=== PATIENT | female | born 1965 | race Caucasian/White ===

== ENCOUNTER 2017-02-25 10:59 | Inpatient (IN) | payer MEDICAID ==
[~2017-02-25] VITALS: Ht 160 cm; Wt 94.0 kg
[2017-02-25] MEDS ORDERED: MORPHINE SULFATE 4 MG/ML, 1ML ONE (11:47)
[2017-02-25] MEDS ORDERED: ACETAMINOPHEN 325 MG TABLET ONE (11:47)
[2017-02-25] MEDS ORDERED: KETOROLAC 30 MG/1 ML ONE (11:47)
[2017-02-25] MEDS ORDERED: PIPERACILLIN/TAZO/PMX 3.375GM 50 ML ONE (11:48)
[2017-02-25] MEDS ORDERED: ONDANSETRON 2MG/ML, 2ML ONE (11:48)
[2017-02-25] MEDS ORDERED: SODIUM CHLORIDE 0.9% 1,000ML IVBOLUS ONE ×2 (12:00→13:30)
[2017-02-25] MEDS ORDERED: PIPERACILLIN/TAZO/PMX 3.375GM 50 ML IVPB ONE (12:00)
[2017-02-25] MEDS ORDERED: KETOROLAC 30 MG/1 ML IVPush ONE (12:00)
[2017-02-25] MEDS ORDERED: morphine SULFATE 10 MG/ML, 1ML IVPush ONE (12:00)
[2017-02-25] MEDS ORDERED: VANCOMYCIN PER PHARMACY MC ONE (12:00)
[2017-02-25] MEDS ORDERED: VANCOMYCIN 1,800 MG in SODIUM CHLORIDE 0.9% 250 ML IV ONE (12:00)
[2017-02-25] MEDS ORDERED: ACETAMINOPHEN 325 MG TABLET PO ONE (12:00)
[2017-02-25] MEDS ORDERED: SODIUM CHLORIDE FLUSH 10ML SYR IVF ONE (12:00)
[2017-02-25 12:01] LABS: HEMOGLOBIN 16.2 g/dL (11.7-16.4)
[2017-02-25 12:15] LABS: BLOOD UREA NITROGEN 16 mg/dL (7-18)
[2017-02-25 12:18] LABS: ASPARTATE AMINO TRANSFERASE 15 U/L (15-37); DIFF TOTAL CELLS COUNTED 100 CELL DIFF
[2017-02-25 12:19] LABS: VERIFY COUNTS? YES
[2017-02-25] MEDS: D5%-0.45% NACL 1,000 ML IV SCH ×2 (14:41→23:09)
[2017-02-25] MEDS ORDERED: VANCOMYCIN PER PHARMACY MC PRN (15:00)
[2017-02-25] MEDS ORDERED: GUAIFENESIN/DM 200-20MG, 10ML UDC PO PRN (15:00)
[2017-02-25] MEDS ORDERED: ONDANSETRON ODT 4 MG PO PRN (15:00)
[2017-02-25] MEDS ORDERED: LABETALOL 5MG/ML, 20ML IV PRN (15:00)
[2017-02-25] MEDS ORDERED: POLYETHYLENE GLYCOL 17 GM PACKET PO PRN (15:00)
[2017-02-25] MEDS ORDERED: MORPHINE SULFATE 4 MG/ML, 1ML IVPush PRN (15:00)
[2017-02-25] MEDS ORDERED: ONDANSETRON 2MG/ML, 2ML IVP PRN (15:00)
[2017-02-25 15:48] VITALS: BP 106/68
[2017-02-25] MEDS ORDERED: VANCOMYCIN 1,800 MG in SODIUM CHLORIDE 0.9% 250 ML IV SCH (16:00)
[2017-02-25] MEDS ORDERED: PHARMACOKINETIC MONITORING MC PRN (16:00)
[2017-02-25] MEDS: CLINDAMYCIN PMX 600MG/50ML 50 ML IV SCH (16:08)
[2017-02-25] MEDS: AMPICILLIN/SULBACTAM 3 GM in SODIUM CHLORIDE 0.9% 100 ML IV SCH ×2 (17:21→20:48)
[2017-02-25] MEDS ORDERED: ENOXAPARIN 40 MG/0.4 ML SQ SCH (17:30)
[2017-02-25 19:03] VITALS: BP 96/61
[2017-02-25 20:35] VITALS: BP 110/72
[2017-02-25] MEDS: HYDROcodone/APAP 5/325 TABLET PO PRN (20:47)
[2017-02-25] MEDS: FAMOTIDINE 20 MG/2 ML IV SCH (20:48)
[2017-02-26] MEDS: CLINDAMYCIN PMX 600MG/50ML 50 ML IV SCH ×3 (00:05→16:45)
[2017-02-26 00:55] VITALS: BP 104/68
[2017-02-26] MEDS: AMPICILLIN/SULBACTAM 3 GM in SODIUM CHLORIDE 0.9% 100 ML IV SCH ×3 (02:39→15:00)
[2017-02-26] MEDS: HYDROcodone/APAP 5/325 TABLET PO PRN ×3 (05:37→15:37)
[2017-02-26] MEDS: D5%-0.45% NACL 1,000 ML IV SCH (05:37)
[2017-02-26 05:56] LABS: HEMOGLOBIN 13.2 g/dL (11.7-16.4)
[2017-02-26 06:01] LABS: BLOOD UREA NITROGEN 14 mg/dL (7-18)
[2017-02-26 06:02] LABS: ASPARTATE AMINO TRANSFERASE 22 U/L (15-37)
[2017-02-26 07:40] VITALS: BP 109/71
[2017-02-26] MEDS ORDERED: SENNA/DOCUSATE TABLET PO SCH (09:00)
[2017-02-26] MEDS: FAMOTIDINE 20 MG/2 ML IV SCH (09:18)
[2017-02-26 13:41] VITALS: BP 112/80
[2017-02-26] MEDS ORDERED: SODIUM CHLORIDE 0.9% 1,000 ML IV SCH (15:30)
[2017-02-26] MEDS ORDERED: VANCOMYCIN 1,800 MG in SODIUM CHLORIDE 0.9% 250 ML IV SCH (17:00)
[2017-02-26] MEDS ORDERED: FAMOTIDINE 20 MG TABLET PO SCH (21:00)
[2017-02-27] MEDS ORDERED: VANCOMYCIN 1,800 MG in SODIUM CHLORIDE 0.9% 250 ML IV SCH
== END 2017-02-26 18:15 | disposition left against medical advice (07) | DRG 871 ==
LOC: ED 13:08 → EDIP 14:06 → 4WST 15:22
PROVIDERS: ADMIT Hospitalist; ATTEND Hospitalist
PROC: 0T9B70Z Drainage of Bladder with Drainage Device, Via Natural or Artificial Opening (ICD-10-PCS; principal; 2017-02-25)
DX: A41.9 Sepsis, unspecified organism (principal); N17.0 Acute kidney failure with tubular necrosis; L03.116 Cellulitis of left lower limb; E87.1 Hypo-osmolality and hyponatremia; E44.1 Mild protein-calorie malnutrition; K21.9 Gastro-esophageal reflux disease without esophagitis; R65.20 Severe sepsis without septic shock; E66.01 Morbid (severe) obesity due to excess calories; Z53.21 Procedure and treatment not carried out due to patient leaving prior to being seen by health care provider; F17.210 Nicotine dependence, cigarettes, uncomplicated; Z80.7 Family history of other malignant neoplasms of lymphoid, hematopoietic and related tissues; Z68.36 Body mass index [BMI] 36.0-36.9, adult; Z98.890 Other specified postprocedural states
CPT/HCPCS: 36415; 71010; 80053; 81003; 82962; 83605; 83735; 84145; 84439; 84443; 85025; 85610; 85730; 87040; 96365; 96366; 96367; 96375; J0295; J1650; J1885; J2543; J3370; J2270; J7030; J7050; S0028

== ENCOUNTER 2018-12-25 08:43 | Inpatient (IN) | payer MEDICAID, OTHER ==
[~2018-12-25] VITALS: Ht 160 cm; Wt 93.2 kg
[2018-12-25] MEDS ORDERED: SODIUM CHLORIDE FLUSH 10ML SYR IVF ONE (09:00)
[2018-12-25] MEDS ORDERED: VANCOMYCIN 1,800 MG in SODIUM CHLORIDE 0.9% 250 ML IV ONE (09:00)
[2018-12-25] MEDS ORDERED: VANCOMYCIN PER PHARMACY MC ONE (09:00)
--- NOTE | 2018-12-25 09:02 | NUR ---
ASSUMED CARE OF PATIENT. PATIENT THONY SO FROM THE HALF-WAY. PT REPORTS RED, SWOLLEN, PAINFUL LEFT LOWER LEG. PT HAS BEEN SEEN BY ROBERTO FREEMAN. PT WAS FEBRILE FOR EMS. 500 MG OF TYLENOL WAS GIVEN. CALL LIGHT IN PLACE. WILL CONTINUE TO MONITOR.
[2018-12-25 09:26] LABS: MEAN CORPUSCULAR HEMOGLOBIN 29.4 pg (27.0-34.8); MEAN CORPUSCULAR HGB CONC 33.9 g/dL (32.4-35.8); MEAN CORPUSCULAR VOLUME 86.9 fL (80-100); MEAN PLATELET VOLUME 8.9 fL (7.4-10.4); PLATELET COUNT 284 x10^3/uL (130-400); RED BLOOD COUNT 5.28 x10^6/uL (3.82-5.3); RED CELL DISTRIBUTION WIDTH 14.6 % (9.6-15.2)
--- NOTE | 2018-12-25 09:26 | NUR ---
UA IN ROOM
[2018-12-25 09:34] LABS: INTERNATIONAL NORMALIZED RATIO 1.05 (0.93-1.1); PROTHROMBIN TIME 11.1 Seconds (9.6-11.5)
[2018-12-25 09:36] LABS: ALBUMIN 3.2 g/dL (3.4-5.0); ANION GAP 8 mmol/L (5-15); CALCIUM 8.8 mg/dL (8.5-10.1); CHLORIDE 106 mmol/L (98-107); CREATININE 0.83 mg/dL (0.55-1.02)
--- NOTE | 2018-12-25 09:38 | NUR ---
BOTH BLOOD CULTURES DRAWN BEFORE ABX GIVEN
[2018-12-25 09:44] LABS: MD YES
[2018-12-25 09:45] LABS: BAND#(MANUAL) 1.94 x10^3/uL; BANDS%(MANUAL) 9 % (0-7); LYMPH#(MANUAL) 0.65 x10^3/uL (1-3.4); LYMPHS% (MANUAL) 3 % (22-44); MONOS#(MANUAL) 0.43 x10^3/uL (0.3-2.7); MONOS% (MANUAL) 2 % (2-9); SEG#(MANUAL) 18.58 x10^3/uL (1.8-6.8); SEGS% (MANUAL) 86 % (42-75)
[2018-12-25 09:46] LABS: <PLATELET ESTIMATE> ADEQUATE; <PLT MORPHOLOGY> NORMAL PLT MORPH; <RBC MORPHOLOGY> NORMAL
--- NOTE | 2018-12-25 10:10 | NUR ---
PT WENT TO CT
--- NOTE | 2018-12-25 11:14 | NUR ---
PT RESTING IN ROOM. NO ACUTE DISTRESS NOTED. VS STABLE. WILL CONTINUE TO MONITOR.
--- NOTE | 2018-12-25 11:52 | NUR ---
REPORT GIVEN TO KARIS BELLAMY
[2018-12-25] MEDS ORDERED: LABETALOL 5MG/ML, 20ML IVPush PRN (12:30)
[2018-12-25] MEDS ORDERED: VANCOMYCIN PER PHARMACY MC PRN (12:30)
[2018-12-25] MEDS ORDERED: ONDANSETRON ODT 4 MG PO PRN (12:30)
[2018-12-25] MEDS ORDERED: ENALAPRILAT 1.25 MG/ML, 2ML IVPush PRN (12:30)
[2018-12-25] MEDS ORDERED: ONDANSETRON 2MG/ML, 2ML IVPush PRN (12:30)
[2018-12-25] MEDS ORDERED: HYDROcodone/APAP 5/325 TABLET PO PRN (12:30)
[2018-12-25] MEDS ORDERED: BISACODYL 10 MG SUPP PR PRN (12:30)
[2018-12-25] MEDS ORDERED: morphine SULFATE 10 MG/ML, 1ML IVPush PRN (12:30)
--- NOTE | 2018-12-25 12:44 | NUR ---
report received from KARIS Brenner. pt a&ox4, resps even and unlabored. cms intact to left LE. pt awaiting med tele bed assignment and transport at this time.
[2018-12-25] MEDS ORDERED: MORPHINE SULFATE 4 MG/ML, 1ML ONE (13:13)
[2018-12-25 13:24] LABS: HCT (SEDRATE) 45.9 % (34.6-47.8)
[2018-12-25] MEDS ORDERED: CLINDAMYCIN PMX 900MG/50ML 50 ML ONE (13:28)
[2018-12-25] MEDS: CLINDAMYCIN PMX 900MG/50ML 50 ML IV SCH ×2 (13:30→20:11)
--- NOTE | 2018-12-25 13:36 | NUR ---
pt reported 10/10 pain to left LE, cms intact. left dorsalis pedis pulse strength +4. pt medicated per emar, tolerated well. pt states pain level 9/10 at this time. cleocin gtt started. piv flushing without difficulty. cardiac monitor technician applied, pt is sinus tach rate 100s with no ectopy. awaiting [employer] bed and transport at this time.
--- NOTE | 2018-12-25 14:06 | NUR ---
report given to KARIS Roman who will receive pt. pt to be transported as soon as room is ready.
[2018-12-25] MEDS: SODIUM CHLORIDE 0.9% 1,000 ML IV SCH (15:13)
[2018-12-25 15:23] VITALS: BP 113/78
[2018-12-25] MEDS: ENOXAPARIN 40 MG/0.4 ML SQ SCH (15:23)
[2018-12-25] MEDS ORDERED: PHARMACOKINETIC MONITORING MC PRN (15:30)
[2018-12-25 17:19] LABS: CULTURE INDICATED? YES; MICROSCOPIC INDICATED
[2018-12-25 19:00] VITALS: BP 127/76
[2018-12-25] MEDS: ACETAMINOPHEN 325 MG TABLET PO PRN (19:14)
[2018-12-25] MEDS: DOCUSATE 100 MG CAPSULE PO SCH (20:42)
[2018-12-26] MEDS: SODIUM CHLORIDE 0.9% 1,000 ML IV SCH ×3 (00:03→18:05)
[2018-12-26 00:13] VITALS: BP 116/75
[2018-12-26] MEDS: CLINDAMYCIN PMX 900MG/50ML 50 ML IV SCH ×3 (04:34→20:15)
[2018-12-26 05:08] LABS: MEAN CORPUSCULAR HEMOGLOBIN 29.6 pg (27.0-34.8); MEAN CORPUSCULAR HGB CONC 33.8 g/dL (32.4-35.8); MEAN CORPUSCULAR VOLUME 87.5 fL (80-100); MEAN PLATELET VOLUME 8.9 fL (7.4-10.4); PLATELET COUNT 246 x10^3/uL (130-400); RED BLOOD COUNT 4.64 x10^6/uL (3.82-5.3); RED CELL DISTRIBUTION WIDTH 15.1 % (9.6-15.2)
[2018-12-26 05:15] LABS: CHLORIDE 107 mmol/L (98-107)
[2018-12-26 05:23] LABS: ALANINE AMINOTRANSFERASE 23 U/L (12-78); ALBUMIN 2.6 g/dL (3.4-5.0); ALKALINE PHOSPHATASE 76 U/L (45-117); ANION GAP 6 mmol/L (5-15); BILIRUBIN,TOTAL 0.8 mg/dL (0.2-1.0); CALCIUM 8.3 mg/dL (8.5-10.1); CREATININE 0.82 mg/dL (0.55-1.02); TOTAL PROTEIN 6.8 g/dL (6.4-8.2)
[2018-12-26 05:42] LABS: BASOPHILS # (AUTO) 0.01 x10^3/uL (0-0.1); BASOPHILS % (AUTO) 0 % (0-1); EOSINOPHILS # (AUTO) 0.01 x10^3/uL (0-0.4); EOSINOPHILS % (AUTO) 0 % (1-7); LYMPHOCYTES # (AUTO) 0.98 x10^3/uL (1-3.4); LYMPHOCYTES % (AUTO) 7 % (22-44); MD SCAN; MONOCYTES # (AUTO) 0.41 x10^3/uL (0.2-0.8); MONOCYTES % (AUTO) 3 % (2-9); NEUTROPHILS # (AUTO) 13.71 x10^3/uL (1.8-6.8); NEUTROPHILS % (AUTO) 91 % (42-75)
[2018-12-26] MEDS: POLYETHYLENE GLYCOL 17 GM PACKET PO SCH (08:06)
[2018-12-26] MEDS: DOCUSATE 100 MG CAPSULE PO SCH ×2 (08:06→20:15)
[2018-12-26 08:28] VITALS: BP 102/69
[2018-12-26] MEDS ORDERED: VANCOMYCIN 1,800 MG in SODIUM CHLORIDE 0.9% 250 ML IV SCH (09:30)
[2018-12-26 14:53] VITALS: BP 111/70
[2018-12-26] MEDS: ENOXAPARIN 40 MG/0.4 ML SQ SCH (15:45)
[2018-12-26 19:48] VITALS: BP 102/66
[2018-12-26] MEDS: ACETAMINOPHEN 325 MG TABLET PO PRN (20:15)
[2018-12-26] MEDS: VANCOMYCIN 1,500 MG in SODIUM CHLORIDE 0.9% 250 ML IV SCH (21:52)
[2018-12-27 01:33] VITALS: BP 128/76
[2018-12-27] MEDS: CLINDAMYCIN PMX 900MG/50ML 50 ML IV SCH ×3 (04:37→20:11)
[2018-12-27] MEDS: SODIUM CHLORIDE 0.9% 1,000 ML IV SCH ×2 (05:54→13:03)
[2018-12-27 06:09] LABS: BASOPHILS # (AUTO) 0.01 x10^3/uL (0-0.1); BASOPHILS % (AUTO) 0 % (0-1); EOSINOPHILS # (AUTO) 0.15 x10^3/uL (0-0.4); EOSINOPHILS % (AUTO) 2 % (1-7); LYMPHOCYTES # (AUTO) 1.69 x10^3/uL (1-3.4); LYMPHOCYTES % (AUTO) 26 % (22-44); MD NO; MEAN CORPUSCULAR HEMOGLOBIN 29.8 pg (27.0-34.8); MEAN CORPUSCULAR HGB CONC 33.7 g/dL (32.4-35.8); MEAN CORPUSCULAR VOLUME 88.3 fL (80-100); MEAN PLATELET VOLUME 9.5 fL (7.4-10.4); MONOCYTES # (AUTO) 0.63 x10^3/uL (0.2-0.8); MONOCYTES % (AUTO) 10 % (2-9); NEUTROPHILS # (AUTO) 4.16 x10^3/uL (1.8-6.8); NEUTROPHILS % (AUTO) 63 % (42-75); PLATELET COUNT 200 x10^3/uL (130-400); RED BLOOD COUNT 4.58 x10^6/uL (3.82-5.3); RED CELL DISTRIBUTION WIDTH 15.1 % (9.6-15.2)
[2018-12-27 06:20] LABS: ALBUMIN 2.4 g/dL (3.4-5.0); ANION GAP 5 mmol/L (5-15); CALCIUM 8.5 mg/dL (8.5-10.1); CHLORIDE 111 mmol/L (98-107)
[2018-12-27 06:23] LABS: ALANINE AMINOTRANSFERASE 20 U/L (12-78); ALKALINE PHOSPHATASE 68 U/L (45-117); BILIRUBIN,TOTAL 0.4 mg/dL (0.2-1.0); CREATININE 0.65 mg/dL (0.55-1.02); TOTAL PROTEIN 6.4 g/dL (6.4-8.2)
[2018-12-27 08:09] VITALS: BP 99/69
[2018-12-27] MEDS: POLYETHYLENE GLYCOL 17 GM PACKET PO SCH (08:24)
[2018-12-27] MEDS: DOCUSATE 100 MG CAPSULE PO SCH ×2 (08:24→20:18)
[2018-12-27] MEDS: VANCOMYCIN 1,500 MG in SODIUM CHLORIDE 0.9% 250 ML IV SCH ×2 (10:21→22:50)
[2018-12-27] MEDS: AMPICILLIN/SULBACTAM 3 GM in SODIUM CHLORIDE 0.9% 100 ML IV SCH ×3 (11:45→23:39)
[2018-12-27] MEDS: ACETAMINOPHEN 325 MG TABLET PO PRN (13:08)
[2018-12-27 15:23] VITALS: BP 111/72
[2018-12-27] MEDS: ENOXAPARIN 40 MG/0.4 ML SQ SCH (16:28)
[2018-12-27 19:16] VITALS: BP 121/73
[2018-12-28] MEDS: AMPICILLIN/SULBACTAM 3 GM in SODIUM CHLORIDE 0.9% 100 ML IV SCH ×3 (00:32→12:08)
[2018-12-28 02:27] VITALS: BP 127/81
[2018-12-28] MEDS: CLINDAMYCIN PMX 900MG/50ML 50 ML IV SCH ×2 (04:25→13:00)
[2018-12-28 05:18] LABS: BASOPHILS # (AUTO) 0.02 x10^3/uL (0-0.1); BASOPHILS % (AUTO) 0 % (0-1); EOSINOPHILS # (AUTO) 0.18 x10^3/uL (0-0.4); EOSINOPHILS % (AUTO) 3 % (1-7); LYMPHOCYTES # (AUTO) 1.62 x10^3/uL (1-3.4); LYMPHOCYTES % (AUTO) 27 % (22-44); MD NO; MEAN CORPUSCULAR HEMOGLOBIN 29.8 pg (27.0-34.8); MEAN CORPUSCULAR HGB CONC 33.9 g/dL (32.4-35.8); MEAN CORPUSCULAR VOLUME 87.8 fL (80-100); MEAN PLATELET VOLUME 8.9 fL (7.4-10.4); MONOCYTES # (AUTO) 0.47 x10^3/uL (0.2-0.8); MONOCYTES % (AUTO) 8 % (2-9); NEUTROPHILS # (AUTO) 3.83 x10^3/uL (1.8-6.8); NEUTROPHILS % (AUTO) 63 % (42-75); PLATELET COUNT 233 x10^3/uL (130-400); RED BLOOD COUNT 4.54 x10^6/uL (3.82-5.3); RED CELL DISTRIBUTION WIDTH 15.2 % (9.6-15.2)
[2018-12-28 05:29] LABS: ALANINE AMINOTRANSFERASE 21 U/L (12-78); ALBUMIN 2.4 g/dL (3.4-5.0); ANION GAP 4 mmol/L (5-15); CALCIUM 8.1 mg/dL (8.5-10.1); CHLORIDE 109 mmol/L (98-107)
[2018-12-28 05:32] LABS: ALKALINE PHOSPHATASE 66 U/L (45-117); BILIRUBIN,TOTAL 0.4 mg/dL (0.2-1.0); CREATININE 0.61 mg/dL (0.55-1.02); TOTAL PROTEIN 6.3 g/dL (6.4-8.2)
[2018-12-28 07:45] VITALS: BP 120/82
[2018-12-28] MEDS: POLYETHYLENE GLYCOL 17 GM PACKET PO SCH (08:52)
[2018-12-28] MEDS: DOCUSATE 100 MG CAPSULE PO SCH (08:52)
[2018-12-28] MEDS ORDERED: AMOX1TAB64 PO (11:51)
[2018-12-28] MEDS ORDERED: DOXY100T PO (11:51)
[2018-12-28] MEDS ORDERED: SODIUM CHLORIDE 0.9% 1,000 ML IV SCH (12:04)
[2018-12-28 13:24] VITALS: BP 112/75
[2018-12-28] MEDS ORDERED: VANCOMYCIN 1,800 MG in SODIUM CHLORIDE 0.9% 250 ML IV SCH (17:00)
== END 2018-12-28 13:50 | disposition home or self-care (01) | DRG 872 ==
LOC: ED 09:32 → EDIP 11:16 → 4WST 14:50
PROVIDERS: ADMIT Hospitalist; ATTEND Hospitalist
DX: A41.9 Sepsis, unspecified organism (principal); L03.116 Cellulitis of left lower limb; E66.9 Obesity, unspecified; I10 Essential (primary) hypertension; K21.9 Gastro-esophageal reflux disease without esophagitis; F15.90 Other stimulant use, unspecified, uncomplicated; G56.03 Carpal tunnel syndrome, bilateral upper limbs; K59.00 Constipation, unspecified; Z80.7 Family history of other malignant neoplasms of lymphoid, hematopoietic and related tissues; Z86.718 Personal history of other venous thrombosis and embolism; Z83.3 Family history of diabetes mellitus; Z68.36 Body mass index [BMI] 36.0-36.9, adult
CPT/HCPCS: 36415; 71045; 74018; 80048; 80053; 80202; 81001; 82040; 83605; 83735; 84100; 84145; 85025; 85610; 85651; 85730; 86140; 87040; 87086; 93005; 96365; 96375; 99285; G0378; J0295; J1650; J3370; J2270; J7030; J7050